=== PATIENT | male | born 1960 | race Caucasian/White ===

== ENCOUNTER 2021-05-16 07:35 | Day surgery (SDC) | payer BC, OTHER ==
[~2021-05-16] VITALS: Ht 182.9 cm; Wt 89.0 kg
--- NOTE | ~2021-05-16 | OR ---
[facility] [address], [place] [address] Draft DATE OF OPERATION: 05/16/2021 SURGEON: Thanh Tomas MD PREOPERATIVE DIAGNOSIS: Large 11 x 6 cm right spermatocele. POSTOPERATIVE DIAGNOSIS: Large 11 x 6 cm right spermatocele. NAME OF PROCEDURE: Right spermatocelectomy. ANESTHESIA: General. ESTIMATED BLOOD LOSS: 5 mL. COMPLICATIONS: None. DRAINS: None. SPECIMENS: Spermatocele sac sent to the lab for pathological evaluation. INDICATION FOR PROCEDURE: Mr. Baez is a very pleasant 61 year old gentleman, who I have known for over a year now. He has been experiencing progressive enlargement of his right hemiscrotum. He was diagnosed with a right spermatocele a couple of years ago, however, he deferred treatment at that time. He most recently presented to me stating that his right hemiscrotum continues to enlarge and is now getting the way of his activities of daily life. He underwent a repeat testicular ultrasound in January of 2021, which revealed an approximately 11 x 6 cm right spermatocele. No other complicating factors were noted at the time of the ultrasound. He presents today to undergo definitive treatment of his right spermatocele. OPERATIVE FINDINGS: PATIENT NAME: CAMILLA BAEZ OPERATIVE REPORT DATE OF : 64 REPORT #: [id number] PHYSICIAN: THANH TOMAS MD PCP: ROSA ELENA MASTERSON MD REPORT IS CONFIDENTIAL AND NOT TO BE RELEASED WITHOUT AUTHORIZATION [facility] [address], [place] [address] Draft 1. On inspection of the external genitalia, the patient has a normal circumcised phallus with a glanular meatus. His testicles are descended bilaterally. His left testicle is normal to palpation. The right testicle is extremely enlarged with an obvious cystic structure palpated near the upper pole of the right testicle. This cystic structure is also palpable just lateral and below the testicle as well. 2. The very large nonloculated right spermatocele was dissected free from the superior and lateral portion of the right testicle with a moderate amount of difficulty. The spermatocele had gotten so large that it began to distort both the venous and arterial anatomy of the right testicle and epididymis. A Doppler was used intraoperatively to confirm the presence of the right testicular artery. As stated, this was somewhat difficult as the normal pathway of the right testicular artery was significantly distorted. After complete dissection of the right spermatocele from the right epididymis and testicle, I was able to be easily appreciate very adequate and normal blood flow to the right testicle. The superior pole as well as a couple of other vessels coming off the lateral side of the testicle. 3. The neck of the spermatocele, along with the most proximal portion of the spermatocele sac was ligated using 3-0 Vicryl without difficulty. The remainder of the spermatocele sac was then sent to the lab for evaluation. DESCRIPTION OF PROCEDURE: After informed consent was obtained, the patient was taken back to the operating room. He was placed in the supine position and his genitalia prepped and draped in a standard sterile fashion. An examination was performed on both of the testicles. Please see the above findings. Attention was then turned to the right hemiscrotum. A marker was used to didier the median raphae for orientation purposes and approximately 5-cm transverse incision was made into the right hemiscrotum using a #15 blade. The right hemiscrotum was sharply dissected down to the level of the tunica vaginalis. I bluntly and sharply dissected and delivered the remainder of the testicle from the right hemiscrotum. Once the right testicle was fully delivered out of the right hemiscrotum, I continued my incision of the tunica vaginalis using sharp scissors and electrocautery. The left testicle and epididymis were then delivered from the tunica vaginalis fully intact. The right epididymis was barely visible due to the presence of a very large right spermatocele associated with it. The right testicle was also adherent to a portion of the right spermatocele. I could not visualize or palpate the tail of the right epididymis. I then began very careful dissection of the large epididymal cyst from both the right testicle and from what was left of the right epididymis. This was used primarily with Griffin scissors and with needle point electrocautery. I managed to keep the cyst fully intact into the very end of the dissection. Once the cyst was dissected free from the right testicle and epididymis, I whittled it down to the level of the neck of the spermatocele. The neck and the proximal portion of the spermatocele sac were then ligated using 3-0 Vicryl without difficulty. The spermatocele sac was then excised from the neck of the spermatocele and placed in a specimen cup to be sent PATIENT NAME: CAMILLA BAEZ OPERATIVE REPORT DATE OF : 64 REPORT #: [id number] PHYSICIAN: THANH TOMAS MD PCP: ROSA ELENA MASTERSON MD REPORT IS CONFIDENTIAL AND NOT TO BE RELEASED WITHOUT AUTHORIZATION [address] [address] Draft to pathology for evaluation. I then cauterized the distal end of the remaining spermatocele sac. It was at this time that I noticed a very small bleeder in the upper pole of the right testicle. This was easily managed with light touch electrocautery. Intraoperative Doppler was brought into the operating room and was utilized to locate the precise location of the right testicular artery. I was still able to hear the right testicular artery in the area that remained free of dissection from the testicle. A very clear pulsating sound was noted on Doppler. I achieved and maintained hemostasis of the dartos tissue within the right hemiscrotum as well as a couple of other small edges at the level of the tunica vaginalis. A portion of the tunica vaginalis was closed over the spermatic cord in a continuous running fashion using 4-0 chromic suture. This was mostly performed to avoid any type of internal hernia within the right hemiscrotum. Once I was satisfied that there was no additional active bleeding within the right testicle or epididymis, I replaced the right testicle into the right hemiscrotum after irrigating the right scrotum and testicle thoroughly with sterile water. With the right testicle back into place within the right hemiscrotum, the dartos fascia was closed in a continuous running fashion using 3-0 Vicryl. The skin was then closed using vertical mattress sutures in a simple interrupted fashion using 4-0 Vicryl. The area was cleaned and dried and then bacitracin as well as gauze were then placed on the right scrotal incision. This was followed by scrotal fluffs and a scrotal support. The procedure was then terminated. The patient tolerated the procedure well without any complications. He will now be transferred to the postanesthesia care unit in stable condition. DISPOSITION: I discussed the details of today's procedure with the patient's and answered all of her questions. He will be discharged back to home later this morning once he awakes from general anesthetic. He was to be sent home with oxycodone 5 mg one tablet p.o. q.6 hours p.r.n. pain along with Keflex 750 mg p.o. b.i.d. for a total of 7 days. He will be scheduled to return to clinic in approximately 3 weeks for his first postoperative evaluation. MD JAHAIRA Alejandro/TYRON /[id number] PATIENT NAME: CAMILLA BAEZ OPERATIVE REPORT DATE OF : 64 REPORT #: [id number] PHYSICIAN: THANH TOMAS MD PCP: ROSA ELENA MASTERSON MD REPORT IS CONFIDENTIAL AND NOT TO BE RELEASED WITHOUT AUTHORIZATION [address] [place] [address] Draft Copies: ~ PATIENT NAME: CAMILLA BAEZ OPERATIVE REPORT DATE OF : 64 REPORT #: [id number] PHYSICIAN: THANH TOMAS MD PCP: ROSA ELENA MASTERSON MD REPORT IS CONFIDENTIAL AND NOT TO BE RELEASED WITHOUT AUTHORIZATION
--- NOTE | 2021-05-16 12:34 | NUR ---
05/16/21 1234 Sheets,Juanita 1228 PT ARRIVED TP PACU ON 6L VIA MASK, PT WAKES EASILY TO TACTILE STIMULI AND DENIES PAIN AND NAUSEA. DEEP BREATHING ENCOURAGED. PT FALLS BACK TO SLEEP EASILY. VSS.
== END 2021-05-16 14:25 | disposition home or self-care (01) ==
LOC: OPS 07:35 → DS 07:35 → OPS 07:45
PROVIDERS: ATTEND Urology
PROC: 0VBJ0ZZ Excision of Right Epididymis, Open Approach (ICD-10-PCS; principal; 2021-05-16 07:45)
DX: N43.41 Spermatocele of epididymis, single (principal)
CPT/HCPCS: 00920; J0131; J0690; J1100; J1885; J2001; J2405; J2704; J3010; J7121